=== PATIENT | male | born 1960 | race Caucasian/White ===

== ENCOUNTER 2019-03-25 18:42 | Emergency (ER) | payer SELFPAY ==
[~2019-03-25] VITALS: Ht 177.8 cm; Wt 83.9 kg
[~2019-03-25 18:42] MED LIST: ALBU90OI INH; ASPI81EC PO; ATEN25 PO; HYDACE5 PO; HYDCHL25 PO; IBUP600 PO; LORA1 PO; POTA8 PO
[2019-03-25 19:29] LABS: BASOPHILS ABSOLUTE AUTO 0.03 K/mm3 (0.00-0.23); BASOPHILS PERCENT AUTO 0 % (0-2); EOSINOPHILS ABSOLUTE AUTO 0.01 K/mm3 (0.00-0.68); EOSINOPHILS PERCENT AUTO 0 % (0-6); Hematocrit 43.2 % (37.0-53.0); Hemoglobin 15.1 g/dL (13.5-17.5); IMMATURE GRAN ABSOLUTE AUTO 0.13 K/mm3 (0.00-0.10); IMMATURE GRAN PERCENT AUTO 1 % (0-1); LYMPHOCYTES ABSOLUTE AUTO 3.17 K/mm3 (0.84-5.20); LYMPHOCYTES PERCENT AUTO 17 % (21-46); MONOCYTES ABSOLUTE AUTO 1.46 K/mm3 (0.16-1.47); MONOCYTES PERCENT AUTO 8 % (4-13); Mean Corpuscular HGB 30.9 pg (26.0-34.0); Mean Corpuscular Volume 89 fL (80-100); Mean Platelet Volume 10.3 fL (9.1-12.4); NEUTROPHILS PERCENT AUTO 75 % (41-73); Platelet Count 275 K/mm3 (150-400); RDW Standard Deviation 38.8 fL (35.1-46.3); Red Blood Cell Count 4.88 M/mm3 (4.30-5.90)
[2019-03-25 19:49] LABS: Alanine Aminotransfer (ALT/SGP 49 U/L (12-78); Albumin, Blood 4.4 g/dL (3.4-5.0); Alk Phos 95 U/L (50-136); Anion Gap 9 mmol/L (6-16); Aspartate Aminotrans (AST/SGOT 26 U/L (12-37); Bilirubin, Total 0.7 mg/dL (0.1-1.0); Blood Urea Nitrogen 30 mg/dL (8-24); CO2, Blood 25 mmol/L (21-32); Calcium, Blood 9.8 mg/dL (8.5-10.1); Chloride, Blood 97 mmol/L (98-108); Creatinine, Blood 0.81 mg/dL (0.60-1.20); Globulin, Blood 4.2 g/dL (2.2-4.0); Glomerular Filtration Rate >60 (60-); Glucose, Blood 149 mg/dL (70-99); Potassium, Blood 3.5 mmol/L (3.5-5.5); Sodium, Blood 131 mmol/L (136-145); Total Protein, Blood 8.6 g/dL (6.4-8.2)
[2019-03-25] MEDS ORDERED: AMLO10 PO (20:32)
[2019-03-25] MEDS ORDERED: Aspir 8181 MG PO (20:32)
[2019-03-25] MEDS ORDERED: ZESTORETIC 20-121 EA PO (20:32)
[2019-03-25 21:34] LABS: Source, Urine Clean Catch
[2019-03-25 21:37] LABS: Bilirubin, Urine Neg (Neg); Blood, Urine 1+ (Neg); Glucose Qualitative, Urine 1+ (Neg); Ketones, Urine 3+ (Neg); Leukocyte Esterase, Urine Neg (Neg); Nitrite, Urine Neg (Neg); Protein, Urine 1+ (Neg); Urobilinogen, Urine NORM (Normal); pH, Urine 6.5 (5.0-8.0)
[2019-03-25 21:38] LABS: Appearance, Urine Clear (Clear); Color, Urine Yellow (P-Yellow)
[2019-03-25 21:51] LABS: Bacteria Not Seen /hpf; Red Blood Cells, Urine 0-2 /hpf (0-2); Squamous Epithelial Cells Rare /hpf (Few); White Blood Cells, Urine Rare /hpf (0-5)
[2019-03-26] MEDS ORDERED: PHENERGAN25 MG PR (00:12)
[2019-03-26] MEDS ORDERED: ONDA4ODT MM (00:12)
[2019-03-26] MEDS ORDERED: METO10 PO (13:26)
[2019-03-27] MEDS ORDERED: PROM25 PO (10:09)
== END 2019-03-26 00:37 | disposition home or self-care (01) ==
LOC: ER 18:42
PROVIDERS: Physician Assistant
DX: R11.2 Nausea with vomiting, unspecified (principal); Z79.899 Other long term (current) drug therapy; Z79.82 Long term (current) use of aspirin; I10 Essential (primary) hypertension; F17.210 Nicotine dependence, cigarettes, uncomplicated
CPT/HCPCS: 36415; 71046; 74176; 80053; 81001; 82271; 83690; 85025; 86850; 86900; 86901; 93005; 93010; 96361; 96374; 96375; 96376; 99285-25; J1200; J2405; J2550; J2765; J7030

== ENCOUNTER 2019-03-26 10:30 | Emergency (ER) | payer SELFPAY ==
[~2019-03-26] VITALS: Ht 177.8 cm; Wt 83.9 kg
[~2019-03-26 10:30] MED LIST changes: +AMLO10 PO; +Aspir 8181 MG PO; +ONDA4ODT MM; +PHENERGAN25 MG PR; +ZESTORETIC 20-121 EA PO
[2019-03-26 11:10] LABS: BASOPHILS ABSOLUTE AUTO 0.04 K/mm3 (0.00-0.23); BASOPHILS PERCENT AUTO 0 % (0-2); EOSINOPHILS ABSOLUTE AUTO 0.04 K/mm3 (0.00-0.68); EOSINOPHILS PERCENT AUTO 0 % (0-6); Hematocrit 38.6 % (37.0-53.0); Hemoglobin 13.1 g/dL (13.5-17.5); IMMATURE GRAN ABSOLUTE AUTO 0.07 K/mm3 (0.00-0.10); IMMATURE GRAN PERCENT AUTO 0 % (0-1); LYMPHOCYTES ABSOLUTE AUTO 3.66 K/mm3 (0.84-5.20); LYMPHOCYTES PERCENT AUTO 22 % (21-46); MONOCYTES ABSOLUTE AUTO 1.31 K/mm3 (0.16-1.47); MONOCYTES PERCENT AUTO 8 % (4-13); Mean Corpuscular HGB Conc 33.9 g/dL (31.5-36.5); Mean Platelet Volume 10.4 fL (9.1-12.4); NEUTROPHILS ABSOLUTE AUTO 11.46 K/mm3 (1.96-9.15); NEUTROPHILS PERCENT AUTO 69 % (41-73); Platelet Count 253 K/mm3 (150-400); RDW Coefficient Variation 12.2 % (11.7-14.2); RDW Standard Deviation 40.9 fL (35.1-46.3); Red Blood Cell Count 4.22 M/mm3 (4.30-5.90); White Blood Cell Count 16.58 K/mm3 (4.00-11.30)
[2019-03-26 11:23] LABS: Mean Corpuscular Volume 92 fL (80-100)
[2019-03-26 11:35] LABS: Alanine Aminotransfer (ALT/SGP 43 U/L (12-78); Albumin, Blood 3.9 g/dL (3.4-5.0); Albumin/Globulin Ratio 1.1 (0.8-1.8); Alk Phos 77 U/L (50-136); Anion Gap 7 mmol/L (6-16); Aspartate Aminotrans (AST/SGOT 29 U/L (12-37); Bilirubin, Total 0.7 mg/dL (0.1-1.0); Blood Urea Nitrogen 28 mg/dL (8-24); Bun/Creatinine Ratio 36.1 (12.0-20.0); CO2, Blood 25 mmol/L (21-32); Calcium, Blood 8.7 mg/dL (8.5-10.1); Chloride, Blood 103 mmol/L (98-108); Creatinine, Blood 0.78 mg/dL (0.60-1.20); Globulin, Blood 3.4 g/dL (2.2-4.0); Glomerular Filtration Rate >60 (60-); Glucose, Blood 128 mg/dL (70-99); Potassium, Blood 3.5 mmol/L (3.5-5.5); Sodium, Blood 135 mmol/L (136-145); Total Protein, Blood 7.3 g/dL (6.4-8.2)
[2019-03-26 12:39] LABS: Source, Urine Clean Catch
[2019-03-26 12:48] LABS: Bilirubin, Urine Neg (Neg); Blood, Urine Neg (Neg); Glucose Qualitative, Urine Neg (Neg); Ketones, Urine Neg (Neg); Leukocyte Esterase, Urine Neg (Neg); Nitrite, Urine Neg (Neg); Protein, Urine Neg (Neg); Urobilinogen, Urine NORM (Normal)
[2019-03-26 12:55] LABS: Appearance, Urine Clear (Clear); Color, Urine Pale Yellow (P-Yellow)
[2019-03-26 13:05] LABS: U Amphetamine Screen Not Detected; U Barbituate Screen Not Detected; U Benzodiazapine Screen Not Detected; U Buprenorphine Screen Not Detected; U Cannabinoids Screen DETECTED; U Cocaine Screen Not Detected; U Methadone Screen Not Detected; U Methamphetamine Screen Not Detected; U Opiates Screen Not Detected; U Oxycodone Screen Not Detected; U Phencyclidine Screen Not Detected; U Propoxyphene Screen Not Detected
[2019-03-26] MEDS ORDERED: METO10 PO (13:26)
[2019-03-27] MEDS ORDERED: PROM25 PO (10:09)
[2019-03-29] MEDS ORDERED: COMPAZINE10 MG PO (15:48)
== END 2019-03-26 13:31 | disposition home or self-care (01) ==
LOC: ER 10:30
PROVIDERS: Emergency Medicine
DX: R11.0 Nausea (principal); I10 Essential (primary) hypertension; F17.210 Nicotine dependence, cigarettes, uncomplicated; Z79.899 Other long term (current) drug therapy
CPT/HCPCS: 36415; 76770; 80053; 81003; 83690; 84484; 85025; 96374; 96375; 99284-25; J1630; J2765; J7030

== ENCOUNTER 2019-03-27 05:22 | Emergency (ER) | payer SELFPAY ==
[~2019-03-27] VITALS: Ht 180.3 cm; Wt 83.9 kg
[~2019-03-27 05:22] MED LIST changes: +METO10 PO
[2019-03-27 06:09] LABS: BASOPHILS ABSOLUTE AUTO 0.07 K/mm3 (0.00-0.23); BASOPHILS PERCENT AUTO 0 % (0-2); EOSINOPHILS ABSOLUTE AUTO 0.04 K/mm3 (0.00-0.68); EOSINOPHILS PERCENT AUTO 0 % (0-6); Hematocrit 38.3 % (37.0-53.0); Hemoglobin 13.2 g/dL (13.5-17.5); IMMATURE GRAN ABSOLUTE AUTO 0.12 K/mm3 (0.00-0.10); IMMATURE GRAN PERCENT AUTO 1 % (0-1); LYMPHOCYTES ABSOLUTE AUTO 3.07 K/mm3 (0.84-5.20); LYMPHOCYTES PERCENT AUTO 16 % (21-46); MONOCYTES ABSOLUTE AUTO 1.16 K/mm3 (0.16-1.47); MONOCYTES PERCENT AUTO 6 % (4-13); Mean Corpuscular HGB 30.8 pg (26.0-34.0); Mean Corpuscular HGB Conc 34.5 g/dL (31.5-36.5); Mean Corpuscular Volume 90 fL (80-100); Mean Platelet Volume 10.3 fL (9.1-12.4); NEUTROPHILS ABSOLUTE AUTO 15.24 K/mm3 (1.96-9.15); NEUTROPHILS PERCENT AUTO 77 % (41-73); Platelet Count 267 K/mm3 (150-400); RDW Coefficient Variation 12.2 % (11.7-14.2); RDW Standard Deviation 39.2 fL (35.1-46.3); Red Blood Cell Count 4.28 M/mm3 (4.30-5.90)
[2019-03-27 06:31] LABS: Alanine Aminotransfer (ALT/SGP 56 U/L (12-78); Albumin, Blood 4.2 g/dL (3.4-5.0); Albumin/Globulin Ratio 1.2 (0.8-1.8); Alk Phos 85 U/L (50-136); Anion Gap 8 mmol/L (6-16); Aspartate Aminotrans (AST/SGOT 44 U/L (12-37); Bilirubin, Total 0.7 mg/dL (0.1-1.0); Blood Urea Nitrogen 23 mg/dL (8-24); Bun/Creatinine Ratio 29.4 (12.0-20.0); CO2, Blood 25 mmol/L (21-32); Chloride, Blood 102 mmol/L (98-108); Creatinine, Blood 0.78 mg/dL (0.60-1.20); Globulin, Blood 3.6 g/dL (2.2-4.0); Glomerular Filtration Rate >60 (60-); Glucose, Blood 119 mg/dL (70-99); Potassium, Blood 3.3 mmol/L (3.5-5.5); Sodium, Blood 135 mmol/L (136-145); Total Protein, Blood 7.8 g/dL (6.4-8.2)
[2019-03-27] MEDS ORDERED: PROM25 PO (10:09)
[2019-03-29] MEDS ORDERED: COMPAZINE10 MG PO (15:48)
== END 2019-03-27 10:23 | disposition home or self-care (01) ==
LOC: ER 05:22
PROVIDERS: Emergency Medicine
DX: R11.2 Nausea with vomiting, unspecified (principal); R10.9 Unspecified abdominal pain; I10 Essential (primary) hypertension; Z79.899 Other long term (current) drug therapy; Z79.82 Long term (current) use of aspirin; F17.210 Nicotine dependence, cigarettes, uncomplicated
CPT/HCPCS: 36415; 74177; 80053; 85025; 96361-59; 96374-59; 96375-59; 96376-59; 99284-25; J1630; J2060; J2550; J3010; J7030; Q9967

== ENCOUNTER 2019-04-25 09:21 | Inpatient (IN) | payer SELFPAY ==
[~2019-04-25] VITALS: Ht 180.3 cm; Wt 77.0 kg
[~2019-04-25 09:21] MED LIST changes: +COMPAZINE10 MG PO; +PROM25 PO
[2019-04-25 10:33] LABS: BASOPHILS ABSOLUTE AUTO 0.04 K/mm3 (0.00-0.23); BASOPHILS PERCENT AUTO 0 % (0-2); EOSINOPHILS ABSOLUTE AUTO 0.01 K/mm3 (0.00-0.68); EOSINOPHILS PERCENT AUTO 0 % (0-6); Hematocrit 45.1 % (37.0-53.0); Hemoglobin 15.5 g/dL (13.5-17.5); IMMATURE GRAN PERCENT AUTO 1 % (0-1); LYMPHOCYTES ABSOLUTE AUTO 2.68 K/mm3 (0.84-5.20); LYMPHOCYTES PERCENT AUTO 13 % (21-46); MONOCYTES ABSOLUTE AUTO 1.75 K/mm3 (0.16-1.47); MONOCYTES PERCENT AUTO 8 % (4-13); Mean Corpuscular HGB 30.8 pg (26.0-34.0); Mean Corpuscular HGB Conc 34.4 g/dL (31.5-36.5); Mean Corpuscular Volume 90 fL (80-100); Mean Platelet Volume 10.1 fL (9.1-12.4); NEUTROPHILS ABSOLUTE AUTO 16.28 K/mm3 (1.96-9.15); NEUTROPHILS PERCENT AUTO 78 % (41-73); Platelet Count 330 K/mm3 (150-400); RDW Coefficient Variation 12.4 % (11.7-14.2); RDW Standard Deviation 40.6 fL (35.1-46.3); Red Blood Cell Count 5.04 M/mm3 (4.30-5.90); White Blood Cell Count 20.86 K/mm3 (4.00-11.30)
[2019-04-25 10:49] LABS: Albumin, Blood 5.1 g/dL (3.4-5.0); Albumin/Globulin Ratio 1.2 (0.8-1.8); Bilirubin, Total 0.7 mg/dL (0.1-1.0); Bun/Creatinine Ratio 25.3 (12.0-20.0); Creatinine, Blood 2.96 mg/dL (0.60-1.20); Globulin, Blood 4.2 g/dL (2.2-4.0); Potassium, Blood 4.1 mmol/L (3.5-5.5); Total Protein, Blood 9.3 g/dL (6.4-8.2)
[2019-04-25 13:41] LABS: C-REACTIVE PROTEIN, EXT RANGE <0.290 mg/dL (0.000-0.300); Magnesium, Blood 2.4 mg/dL (1.6-2.4)
[2019-04-25 13:43] LABS: Thyroid Stimulating Hormone 0.299 uIU/mL (0.360-4.800)
--- NOTE | 2019-04-25 14:52 | NUR ---
ADMIT NOTE RECEIVED REPORT FROM NYA WE[facility] IN ED. PT ROOM 1345, IND IN ROOM. PT/FAMILY ORIENTED TO ROOM, FALL RISK AND CALL LIGHT SYSTEM. PT A&OX4. CALM AND COOPERATIVE WITH CARE. PT IND IN ROOM. CALL LIGHT WITHIN REACH. PT REPORTS NAUSEA UPON ADMISSION, MEDICATED PER EMAR. PT DENIES PAIN AND SOB. PT REPORTS THE N/V ORIGINALLY STARTED A MONTH AGO AND HAS INCREASINGLY WORSENING OVER THE LAST 5 DAYS. PT RECIVING IV FLUDIS NS 150ML/HR. VSS. NO OTHER ACUTE CHANGES NOTED, WILL CONTINUE TO MONITOR.
--- NOTE | 2019-04-25 17:56 | NUR ---
SHIFT SUMMARY PT A&OX4. CALM AND COOPERATIVE CARE. PT RESTING IN BED DURING SHIFT. IND IN ROOM, SBA WITH IV POLE. PT REPORTS NAS[place]A DURING SHIFT, MEDICATED PER EMAR. PT DENIES PAIN AND N/V DURING SHIFT. PT RECEIVING IV FLUIDS. VSS. NO OTHER ACUTE CHANGES NOTED DURING SHIFT. WILL CONTINUE TO MONITOR UNTIL REPORT GIVEN TO ONCOMING RN.
[2019-04-26 04:12] LABS: Source, Urine Clean Catch
[2019-04-26 04:14] LABS: Bilirubin, Urine Neg (Neg); Blood, Urine Neg (Neg); Glucose Qualitative, Urine Neg (Neg); Ketones, Urine Neg (Neg); Leukocyte Esterase, Urine Neg (Neg); Nitrite, Urine Neg (Neg); Protein, Urine Neg (Neg); Urobilinogen, Urine NORM (Normal); pH, Urine 6.5 (5.0-8.0)
[2019-04-26 04:16] LABS: Appearance, Urine Clear (Clear); Color, Urine Yellow (P-Yellow)
--- NOTE | 2019-04-26 05:00 | NUR ---
SHIFT SUMMARY PT HAS BEEN REQUIRING IV ANTI-NAUSEA MEDICATION FREQUENLTY T/O THE NIGHT. PT HAS, HOWEVER, BEEN ABLE TO DRINK AND HOLD DOWN 2 PITCHERS OF WATER DURING THE NIGHT. IS ALERT AND ORIENTED, DENIES PAIN. IVF'S INFUSING AT 150ML/HR WITHOUT DIFFICULTY. UP TO BATHROOM PER SELF IN ROOM. URINE SAMPLE OBTAINED THIS AM FOR LAB. WILL CONTINUE TO MONITOR.
[2019-04-26 05:20] LABS: BASOPHILS ABSOLUTE AUTO 0.03 K/mm3 (0.00-0.23); BASOPHILS PERCENT AUTO 0 % (0-2); EOSINOPHILS ABSOLUTE AUTO 0.02 K/mm3 (0.00-0.68); EOSINOPHILS PERCENT AUTO 0 % (0-6); Hematocrit 35.4 % (37.0-53.0); Hemoglobin 12.3 g/dL (13.5-17.5); IMMATURE GRAN ABSOLUTE AUTO 0.08 K/mm3 (0.00-0.10); IMMATURE GRAN PERCENT AUTO 1 % (0-1); LYMPHOCYTES PERCENT AUTO 23 % (21-46); MONOCYTES ABSOLUTE AUTO 1.78 K/mm3 (0.16-1.47); MONOCYTES PERCENT AUTO 11 % (4-13); Mean Corpuscular HGB 30.9 pg (26.0-34.0); Mean Corpuscular HGB Conc 34.7 g/dL (31.5-36.5); Mean Corpuscular Volume 89 fL (80-100); Mean Platelet Volume 10.4 fL (9.1-12.4); NEUTROPHILS ABSOLUTE AUTO 10.69 K/mm3 (1.96-9.15); NEUTROPHILS PERCENT AUTO 66 % (41-73); Platelet Count 257 K/mm3 (150-400); RDW Coefficient Variation 12.1 % (11.7-14.2); RDW Standard Deviation 39.2 fL (35.1-46.3); Red Blood Cell Count 3.98 M/mm3 (4.30-5.90)
[2019-04-26 05:42] LABS: Alanine Aminotransfer (ALT/SGP 28 U/L (12-78); Albumin, Blood 3.3 g/dL (3.4-5.0); Alk Phos 65 U/L (50-136); Anion Gap 7 mmol/L (6-16); Aspartate Aminotrans (AST/SGOT 24 U/L (12-37); Blood Urea Nitrogen 39 mg/dL (8-24); Bun/Creatinine Ratio 41.8 (12.0-20.0); CHOL/HDL RATIO 6.5; CO2, Blood 25 mmol/L (21-32); Calcium, Blood 8.2 mg/dL (8.5-10.1); Chloride, Blood 100 mmol/L (98-108); Cholesterol 196 mg/dL (50-200); Creatinine, Blood 0.93 mg/dL (0.60-1.20); Glomerular Filtration Rate >60 (60-); Glucose, Blood 101 mg/dL (70-99); HDL Cholesterol 30 mg/dL (>39); LDL/HDL RATIO 3.5; Low Density Lipoprotein Chol 104 mg/dL (0-110); Magnesium, Blood 2.1 mg/dL (1.6-2.4); Potassium, Blood 3.7 mmol/L (3.5-5.5); Sodium, Blood 132 mmol/L (136-145); Triglycerides 311 mg/dL (30-160); Very Low Density Lipoprot Chol 62 mg/dL (6-32)
[2019-04-26 05:49] LABS: Albumin/Globulin Ratio 1.1 (0.8-1.8)
[2019-04-26 05:51] LABS: Total Protein, Blood 6.3 g/dL (6.4-8.2)
--- NOTE | 2019-04-26 17:43 | NUR ---
SUMMARY PT IS A/O X4, PLEASANT/COOPERATIVE AFFECT. THIS AM HE STATE MILD-NO NAUSEA, TOLERATE CL DIET. STATE WOULD LIKE TO TRY REG DIET. DR OLEARY ORDER OK TO ADV DIET. PT TOLERATED REG DIET LUNCH W/O NAUSEA, EATING & DRINKING FLUIDS WELL, DR STOP IVF INFUSION. PT HAS BEEN UP AMBULATING IN VELE[place], INDEPENDANT IN ROOM. ORDER MRI R HIP R/T HX LESION @ THAT SITE. VSS.
[2019-04-27 05:27] LABS: BASOPHILS ABSOLUTE AUTO 0.05 K/mm3 (0.00-0.23); BASOPHILS PERCENT AUTO 0 % (0-2); EOSINOPHILS ABSOLUTE AUTO 0.19 K/mm3 (0.00-0.68); EOSINOPHILS PERCENT AUTO 1 % (0-6); Hematocrit 34.8 % (37.0-53.0); Hemoglobin 11.9 g/dL (13.5-17.5); IMMATURE GRAN ABSOLUTE AUTO 0.06 K/mm3 (0.00-0.10); IMMATURE GRAN PERCENT AUTO 1 % (0-1); LYMPHOCYTES PERCENT AUTO 41 % (21-46); MONOCYTES ABSOLUTE AUTO 1.51 K/mm3 (0.16-1.47); MONOCYTES PERCENT AUTO 11 % (4-13); Mean Corpuscular HGB 30.7 pg (26.0-34.0); Mean Corpuscular HGB Conc 34.2 g/dL (31.5-36.5); Mean Corpuscular Volume 90 fL (80-100); Mean Platelet Volume 10.7 fL (9.1-12.4); NEUTROPHILS ABSOLUTE AUTO 6.03 K/mm3 (1.96-9.15); NEUTROPHILS PERCENT AUTO 46 % (41-73); Platelet Count 239 K/mm3 (150-400); RDW Standard Deviation 39.1 fL (35.1-46.3); Red Blood Cell Count 3.87 M/mm3 (4.30-5.90); White Blood Cell Count 13.24 K/mm3 (4.00-11.30)
--- NOTE | 2019-04-27 05:41 | NUR ---
SHIFT SUMMARY PT AWAKE ON/OFF T/O NIGHT. AOX4. VSS. DENIES ANY PAIN, NAUSEA OR SOB. TOLERATING REGULAR DIET & FLUIDS WELL. INDEPENDENTLY AMBULATING THE HALLS W/STEADY GAIT, GONE ON MULTIPLE WALKS TO SMOKE OUTSIDE. CALL LIGHT IN REACH.
[2019-04-27 06:00] LABS: Alanine Aminotransfer (ALT/SGP 34 U/L (12-78); Albumin, Blood 3.2 g/dL (3.4-5.0); Albumin/Globulin Ratio 1.1 (0.8-1.8); Alk Phos 67 U/L (50-136); Anion Gap 5 mmol/L (6-16); Aspartate Aminotrans (AST/SGOT 18 U/L (12-37); Bilirubin, Total 0.7 mg/dL (0.1-1.0); Blood Urea Nitrogen 25 mg/dL (8-24); Bun/Creatinine Ratio 31.9 (12.0-20.0); CO2, Blood 28 mmol/L (21-32); Calcium, Blood 8.4 mg/dL (8.5-10.1); Chloride, Blood 102 mmol/L (98-108); Creatinine, Blood 0.78 mg/dL (0.60-1.20); Globulin, Blood 2.8 g/dL (2.2-4.0); Glomerular Filtration Rate >60 (60-); Glucose, Blood 88 mg/dL (70-99); Potassium, Blood 4.1 mmol/L (3.5-5.5); Sodium, Blood 135 mmol/L (136-145)
[2019-04-27] MEDS ORDERED: AMLO5 PO (12:31)
[2019-04-27] MEDS ORDERED: Prilosec Otc20 MG PO (12:32)
--- NOTE | 2019-04-27 13:37 | NUR ---
1320 PT DISCHARGED HOME VIA PERSONAL VEHICLE ACCOMPANIED BY . PT SELF AMBULATED TO FACILITY ENTRANCE PER HIS REQUEST. IV REMOVED. D/C PAPERWORK REVIEWED WITH PT AND COPY PROVIDED. NEW RX FAXED TO [facility] PER PT REQUEST. NO NEW CHANGES OR CONCERNS.
== END 2019-04-27 13:20 | disposition home or self-care (01) | DRG 683 ==
LOC: ER 09:21 → MEDS 12:41
PROVIDERS: Emergency Medicine; ADMIT Internal Medicine
DX: N17.9 Acute kidney failure, unspecified (principal); E87.1 Hypo-osmolality and hyponatremia; I10 Essential (primary) hypertension; F17.210 Nicotine dependence, cigarettes, uncomplicated; Z79.82 Long term (current) use of aspirin; M89.8X5 Other specified disorders of bone, thigh; D72.829 Elevated white blood cell count, unspecified
CPT/HCPCS: 36415; 73723; 76770; 80053; 80061; 81003; 83605; 83690; 83735; 84443; 85025; 85651; 86140; 96361; 96374; 96375; 99285-25; A9577; C9113; J0780; J1644; J2405; J2765; J7030

== ENCOUNTER 2023-09-16 08:48 | Inpatient (IN) | payer BC ==
[~2023-09-16] VITALS: Ht 175.3 cm; Wt 78.8 kg
[~2023-09-16 08:48] MED LIST changes: +AMLO5 PO; +Prilosec Otc20 MG PO
[2023-09-16 09:18] LABS: BASOPHILS ABSOLUTE AUTO 0.07 K/mm3 (0.00-0.23); BASOPHILS PERCENT AUTO 1 % (0-2); EOSINOPHILS ABSOLUTE AUTO 0.01 K/mm3 (0.00-0.68); EOSINOPHILS PERCENT AUTO 0 % (0-6); Hematocrit 47.3 % (37.0-53.0); Hemoglobin 16.3 g/dL (13.5-17.5); IMMATURE GRAN ABSOLUTE AUTO 0.07 K/mm3 (0.00-0.10); IMMATURE GRAN PERCENT AUTO 1 % (0-1); LYMPHOCYTES ABSOLUTE AUTO 2.17 K/mm3 (0.84-5.20); LYMPHOCYTES PERCENT AUTO 15 % (21-46); MONOCYTES ABSOLUTE AUTO 0.83 K/mm3 (0.16-1.47); MONOCYTES PERCENT AUTO 6 % (4-13); Mean Corpuscular HGB 30.7 pg (26.0-34.0); Mean Corpuscular HGB Conc 34.5 g/dL (31.5-36.5); Mean Corpuscular Volume 89 fL (80-100); Mean Platelet Volume 10.2 fL (9.1-12.4); NEUTROPHILS ABSOLUTE AUTO 11.86 K/mm3 (1.96-9.15); NEUTROPHILS PERCENT AUTO 79 % (41-73); Platelet Count 299 K/mm3 (150-400); RDW Standard Deviation 39.1 fL (35.1-46.3); Red Blood Cell Count 5.31 M/mm3 (4.30-5.90); White Blood Cell Count 15.01 K/mm3 (4.00-11.30)
[2023-09-16 09:42] LABS: Albumin, Blood 3.5 g/dL (3.4-5.0); Albumin/Globulin Ratio 0.8 (0.8-1.8); Bilirubin, Total 0.5 mg/dL (0.1-1.0); Bun/Creatinine Ratio 22.5 (12.0-20.0); Calcium, Blood 9.1 mg/dL (8.5-10.1); Creatinine, Blood 0.71 mg/dL (0.60-1.20); Globulin, Blood 4.6 g/dL (2.2-4.0); Potassium, Blood 4.7 mmol/L (3.5-5.5); Total Protein, Blood 8.1 g/dL (6.4-8.2)
[2023-09-16 10:47] LABS: International Normalized Ratio 1.01; Prothrombin Time Results 10.6 Sec (9.7-11.5)
[2023-09-16 14:54] LABS: CHOL/HDL RATIO 4.9; Cholesterol 214 mg/dL (50-200); HDL Cholesterol 44 mg/dL (>39); LDL/HDL RATIO 3.3; Low Density Lipoprotein Chol 143 mg/dL (0-110); Triglycerides 133 mg/dL (30-160); Very Low Density Lipoprot Chol 26 mg/dL (6-32)
[2023-09-16 15:58] VITALS: BP 191/95
[2023-09-16 16:12] LABS: U Amphetamine Screen Not Detected; U Barbituate Screen Not Detected; U Benzodiazapine Screen Not Detected; U Buprenorphine Screen Not Detected; U Cannabinoids Screen DETECTED; U Cocaine Screen Not Detected; U Methadone Screen Not Detected; U Methamphetamine Screen Not Detected; U Opiates Screen Not Detected; U Oxycodone Screen Not Detected; U Phencyclidine Screen Not Detected; U Propoxyphene Screen Not Detected
[2023-09-16] MEDS ORDERED: ASPI81CH PO (17:48)
--- NOTE | 2023-09-16 17:49 | NUR ---
SHIFT SUMMARY: PT IS A 63 YEAR OLD MALE HERE FROM THE ED FOR A CVA RESULTING IN RIGHT SIDED DEFICITS AND UNABLE TO VERBALLY COMMUNICATE. HE ALSO STRUGGLES TO COMMUNICATE WITH YES OR NO BY USING HIS THUMBS (UP OR DOWN), SHAKING HIS HEAD YES OR NO, OR EVEN USING THE PICTURE BOARD. HEALTH HISTORY OBTAINED WITH PATIENT'S EX JITENDRA. STATED THAT HE WAS INDEPENDENT PRIOR TO THIS EVENT AND WAS FINE OF LAST NIGHT AROUND 2200. HE HAS A HISTORY OF HTN, BUT DOES NOT FOLLOW UP WITH A PCP OR TAKES MEDICATIONS OTHER THAN A LOW DOSE ASPIRIN AND ISN'T SURE IF HE WAS TAKING IT DAILY. AWAITING PT/OT/AND ST EVALUATION TO PROGRESS FURTHER WITH CARE, SO AT THIS TIME REMAINS BEDREST AND NPO. SPOKE WITH DR. EASON AND ADVISED TO KEEP PATIENT NPO UNTIL EVALUATION WITH ST AND TO MAINTAIN PERMISSIVE HTN. PATIENT IN BED RESTING, CALL LIGHT WITHIN REACH, NO SIGNS OR SYMPTOMS OF DISTRESS, AND SON AT BEDSIDE. PLAN OF CARE ONGOING.
[2023-09-16 20:39] VITALS: BP 198/112
--- NOTE | 2023-09-17 04:24 | NUR ---
SHIFT SUMMARY: PT IS ADMITTED FOR STROKE WITH RIGHT SIDE WEAKNESS. IS A FULL CODE. IS ALERT BUT UNABLE TO DETERMINE TO WHAT EXTENT DUE TO NON VERBAL. ATTEMPTED TO TRY SEVERAL DIFFERENT METHODS TO FACILITATE COMMUNICATION BUT NON WERE EFFECTIVE AT THIS TIME. HE WAS ABLE TO SHOW SOME RESPONSE WITH BASIC COMMANDS. NO SIGNS THAT HE HAS DISCOMFORT. IV IN PLACE TO LEFT FOREARM WITH NS RUNNING AT 75ML/H. JORGE L REPORTED SINIS @ 83.
[2023-09-17 04:56] VITALS: BP 198/107
[2023-09-17 05:54] LABS: BASOPHILS ABSOLUTE AUTO 0.08 K/mm3 (0.00-0.23); BASOPHILS PERCENT AUTO 1 % (0-2); EOSINOPHILS ABSOLUTE AUTO 0.11 K/mm3 (0.00-0.68); EOSINOPHILS PERCENT AUTO 1 % (0-6); Hemoglobin 15.6 g/dL (13.5-17.5); IMMATURE GRAN ABSOLUTE AUTO 0.04 K/mm3 (0.00-0.10); IMMATURE GRAN PERCENT AUTO 0 % (0-1); LYMPHOCYTES ABSOLUTE AUTO 3.21 K/mm3 (0.84-5.20); LYMPHOCYTES PERCENT AUTO 27 % (21-46); MONOCYTES ABSOLUTE AUTO 1.02 K/mm3 (0.16-1.47); MONOCYTES PERCENT AUTO 9 % (4-13); Mean Corpuscular HGB 30.2 pg (26.0-34.0); Mean Corpuscular HGB Conc 34.7 g/dL (31.5-36.5); Mean Corpuscular Volume 87 fL (80-100); Mean Platelet Volume 9.9 fL (9.1-12.4); NEUTROPHILS ABSOLUTE AUTO 7.32 K/mm3 (1.96-9.15); NEUTROPHILS PERCENT AUTO 62 % (41-73); Platelet Count 303 K/mm3 (150-400); RDW Standard Deviation 38.6 fL (35.1-46.3); Red Blood Cell Count 5.16 M/mm3 (4.30-5.90); White Blood Cell Count 11.78 K/mm3 (4.00-11.30)
[2023-09-17 06:27] LABS: Bun/Creatinine Ratio 18.8 (12.0-20.0); Calcium, Blood 9.1 mg/dL (8.5-10.1); Creatinine, Blood 0.74 mg/dL (0.60-1.20); Potassium, Blood 3.8 mmol/L (3.5-5.5)
[2023-09-17 07:27] VITALS: BP 181/113
[2023-09-17 15:48] VITALS: BP 192/116
--- NOTE | 2023-09-17 17:23 | NUR ---
SHIFT SUMMARY: PT IS A 63 YEAR OLD MALE HERE 1 DAY POST CVA. HE CONTINUES TO BE NON VERBAL, COMMUNICATING WITH THUMBS UP AND DOWN WITH YES AND NO QUESTIONS. NO PHYSICAL CHANGES WITH HIS NEUROLOGICAL DEFICITS ON THE RIGHT SIDE. HE WAS ABLE TO ADVANCE TO A PUREE AND THIN LIQUID DIET AND WILL BE HAVING A SWALLOW EVALUATION TOMORROW. HE IS IN BED, CALL LIGHT WITHIN REACH, AND NO SIGNS OR SYMPTOMS OF DISTRESS. PLAN OF CARE ONGOING.
[2023-09-17 19:59] VITALS: BP 187/115
[2023-09-18 04:05] VITALS: BP 156/98
[2023-09-18 05:11] LABS: BASOPHILS ABSOLUTE AUTO 0.09 K/mm3 (0.00-0.23); BASOPHILS PERCENT AUTO 1 % (0-2); EOSINOPHILS ABSOLUTE AUTO 0.17 K/mm3 (0.00-0.68); EOSINOPHILS PERCENT AUTO 2 % (0-6); Hematocrit 44.3 % (37.0-53.0); Hemoglobin 15.2 g/dL (13.5-17.5); IMMATURE GRAN ABSOLUTE AUTO 0.03 K/mm3 (0.00-0.10); IMMATURE GRAN PERCENT AUTO 0 % (0-1); LYMPHOCYTES ABSOLUTE AUTO 3.23 K/mm3 (0.84-5.20); LYMPHOCYTES PERCENT AUTO 28 % (21-46); MONOCYTES ABSOLUTE AUTO 1.03 K/mm3 (0.16-1.47); MONOCYTES PERCENT AUTO 9 % (4-13); Mean Corpuscular HGB Conc 34.3 g/dL (31.5-36.5); Mean Corpuscular Volume 88 fL (80-100); Mean Platelet Volume 9.8 fL (9.1-12.4); NEUTROPHILS ABSOLUTE AUTO 6.82 K/mm3 (1.96-9.15); NEUTROPHILS PERCENT AUTO 60 % (41-73); Platelet Count 300 K/mm3 (150-400); RDW Standard Deviation 38.7 fL (35.1-46.3); Red Blood Cell Count 5.06 M/mm3 (4.30-5.90); White Blood Cell Count 11.37 K/mm3 (4.00-11.30)
[2023-09-18 05:37] LABS: Bun/Creatinine Ratio 18.2 (12.0-20.0); Calcium, Blood 8.7 mg/dL (8.5-10.1); Creatinine, Blood 0.82 mg/dL (0.60-1.20)
--- NOTE | 2023-09-18 06:40 | NUR ---
SHIFT SUMMARY EASILY AROUSABLE TO BOTH VERBAL AND TACTILE STIMULI. EYES OPEN SPONTANEOUSLY AND ARE EQUALLY REACTIVE TO LIGHT. CONTINUES TO BE NONVERBAL, BUT IS ABLE TO ANSWER "YES" OR "NO" QUESTIONS WITH USE OF EITHER A THUMBS UP OR THUMBS DOWN.RIGHT SIDED DEFICITS WITH FACIAL DROOP STILL NOTED. CARDIAC, REMAINS IN SR 70-80'S WITH NO CP OR PRESSURE REPORTED. SBP HAS BEEN ELEVATED RANGING 150-180'S. RESPIRATORY, MAINTAINS SPO2 >95% ON RA WITH NO SIGNS OF DYSPNEA OR RESPIRATORY DISTRESS. ., CONDOM CATH IN PLACE DUE TO INCONTINENCE. CATH PATENT AND DRAINING DORA/YELLOW COLORED URINE TO GRAVITY. NO BM THIS SHIFT. CONTINUES TO BE BEDREST DUE TO AMBULATORY DEFICITS. PT/OT ON BOARD WELL SPEECH THERAPY. ASSESSED PT FOR RISKS OF ANY IGNITION SOURCES WELL BEHAVIORS FOR INCREASED RISKS OF FIRE DANGER. PT EDUCATED ON COMMON SOURCES OF IGNITION WELL NEED TO KEEP A SAFE ENVIRONMENT. NO NEW ORDERS AT THIS TIME, WILL REPORT TO ONCOMING RN. YAHAIRA PELLETIER OF THIS NOTE
[2023-09-18 07:43] VITALS: BP 154/97
[2023-09-18 15:50] VITALS: BP 182/102
--- NOTE | 2023-09-18 17:19 | NUR ---
SHIFT SUMMARY: ANJANA IS HERE POST CVA, SHOWING NEUROLOGICAL IMPROVEMENT SINCE YESTERDAY. NOW ABLE TO MOVE TOES IN HIS RIGHT FOOT AND HAS BEEN COMMUNICATING MORE EFFECTIVELY WITH SLIGHT YES AND NO HEAD NODDING AND UTILIZING THE PICTURE BOARD. HE CONTINUES TO NOT EAT OR DRINK VERY MUCH. CONTINUE TO ENCOURAGE PATIENT TO EAT AND DRINK. HE HASN'T HAD A BOWEL MOVEMENT, BUT HAS HAD URINE OUTPUT. HE IS IN HIS BEDSIDE RECLINER, CALL LIGHT WITHIN REACH, AND NO SIGNS OR SYMPTOMS OF DISTRESS. PLAN IS TO DISCHARGE PATIENT TO A REHAB FACILITY, BUT PLAN IS STILL PENDING WITH NON DESTRUCTIVE EVALUATION MANAGER AND PATIENT/FAMILY. PLAN OF CARE ONGOING.
[2023-09-18 20:05] VITALS: BP 177/103
[2023-09-19 03:31] VITALS: BP 183/102
--- NOTE | 2023-09-19 03:51 | NUR ---
SHIFT SUMMARY PT IS HERE POST CVA, NEURO IMPROVING. RIGHT SIDED FACIAL DROOP WITH RIGHT SIDED DEFICIT. PT WAS ABLE TO SQUEEZE WITH THE RIGHT HAND WELL MOVE MOST OF THE RIGHT FOOT NOT JUST THE TOES. PT IS ABLE TO SHAKE HEAD YES OR NO TO ANSWER QUESTIONS OR GIVE THUMBS UP/DOWN. PT PO INTAKE IS VERY LITTLE. NS RUNNING AT 75. 2 PERSON ASSIST FROM CHAIR TO BED. CONDOM CATH IN PLACE WITH DRY ATTENDS. PERMISSIVE HYPERTENSION 183/102. DR AWARE. TELEMETRY: SR @ 70. PT DENIES ANY PAIN AT THIS TIME. BED KEPT IN LOWEST POSITION WITH CALL LIGHT WITHIN REACH. WILL CONTINUE TO MONITOR UNTIL END OF SHIFT.
[2023-09-19 07:12] VITALS: BP 166/100
--- NOTE | 2023-09-19 08:00 | NUR ---
pt laying on his side looks comfortable, resp even and unlabored, didn't really respond, call light in reach.
--- NOTE | 2023-09-19 09:00 | NUR ---
pt laying in bed watching tv, pt is nonverbal, shakes head yes/no, lungs are clear t/o, not really taking deep breaths, on r/a, resp even and unlabored, no cough noted, hrr, tele in place running sr in the 70's, no edema noted, piv site is clear and patent, infusing ns as ordered, has briefs in place and a condom cath, skin c/w/d, right arm is flacid, leg is weak, is eating this am, took po meds one at a time in pudding, call light in reach.
[2023-09-19 09:12] VITALS: BP 183/98
[2023-09-19 11:30] VITALS: BP 180/97
[2023-09-19 14:35] VITALS: BP 168/108
--- NOTE | 2023-09-19 18:23 | NUR ---
pt sat up in a chair for a few hrs, was a difficult two person tx to bed as he wasn't able to follow directions well, iv fluids were stopped, is feeding himself pretty well, no further changes this shift. call light in reach.
[2023-09-19 20:03] VITALS: BP 158/92
[2023-09-20 06:13] LABS: BASOPHILS ABSOLUTE AUTO 0.07 K/mm3 (0.00-0.23); BASOPHILS PERCENT AUTO 1 % (0-2); EOSINOPHILS ABSOLUTE AUTO 0.24 K/mm3 (0.00-0.68); EOSINOPHILS PERCENT AUTO 2 % (0-6); Hematocrit 46.1 % (37.0-53.0); Hemoglobin 15.9 g/dL (13.5-17.5); IMMATURE GRAN ABSOLUTE AUTO 0.03 K/mm3 (0.00-0.10); IMMATURE GRAN PERCENT AUTO 0 % (0-1); LYMPHOCYTES ABSOLUTE AUTO 3.09 K/mm3 (0.84-5.20); LYMPHOCYTES PERCENT AUTO 31 % (21-46); MONOCYTES ABSOLUTE AUTO 0.92 K/mm3 (0.16-1.47); MONOCYTES PERCENT AUTO 9 % (4-13); Mean Corpuscular HGB 29.9 pg (26.0-34.0); Mean Corpuscular HGB Conc 34.5 g/dL (31.5-36.5); Mean Corpuscular Volume 87 fL (80-100); Mean Platelet Volume 9.9 fL (9.1-12.4); NEUTROPHILS ABSOLUTE AUTO 5.74 K/mm3 (1.96-9.15); NEUTROPHILS PERCENT AUTO 57 % (41-73); Platelet Count 310 K/mm3 (150-400); RDW Coefficient Variation 11.9 % (11.7-14.2); RDW Standard Deviation 37.8 fL (35.1-46.3); Red Blood Cell Count 5.32 M/mm3 (4.30-5.90); White Blood Cell Count 10.09 K/mm3 (4.00-11.30)
[2023-09-20 06:50] LABS: Bun/Creatinine Ratio 32.5 (12.0-20.0); Calcium, Blood 9.3 mg/dL (8.5-10.1); Creatinine, Blood 0.77 mg/dL (0.60-1.20)
[2023-09-20 07:20] VITALS: BP 151/113
[2023-09-20 09:01] VITALS: BP 158/96
[2023-09-20 12:46] VITALS: BP 139/80
[2023-09-20 17:24] VITALS: BP 144/96
--- NOTE | 2023-09-20 18:48 | NUR ---
SHIFT SUMMARY PATIENT INCONTINENT, NONVERBAL AT THIS TIME. RIGHT SIDE IMPROVING. PATIENT ABLE TO OPEN AND CLOSE FINGERS/HAND AND STAND/STEP WITH RIGHT FOOT. STILL 2 PERSON MAX ASSIST WITH GAIT BELT AND WALKER. PATIENT COMMUNICATES NEEDS WITH PICTURE BOARD. CALL LIGHT IN REACH, BED IN LOW POSITION. PATIENT DOESNT CALL.
[2023-09-20 20:13] VITALS: BP 169/96
[2023-09-21 04:10] VITALS: BP 135/98
[2023-09-21 05:25] LABS: BASOPHILS PERCENT AUTO 1 % (0-2); EOSINOPHILS ABSOLUTE AUTO 0.34 K/mm3 (0.00-0.68); EOSINOPHILS PERCENT AUTO 3 % (0-6); Hematocrit 47.4 % (37.0-53.0); Hemoglobin 16.3 g/dL (13.5-17.5); IMMATURE GRAN ABSOLUTE AUTO 0.05 K/mm3 (0.00-0.10); IMMATURE GRAN PERCENT AUTO 0 % (0-1); LYMPHOCYTES ABSOLUTE AUTO 3.27 K/mm3 (0.84-5.20); LYMPHOCYTES PERCENT AUTO 28 % (21-46); MONOCYTES ABSOLUTE AUTO 1.11 K/mm3 (0.16-1.47); MONOCYTES PERCENT AUTO 10 % (4-13); Mean Corpuscular HGB 30.3 pg (26.0-34.0); Mean Corpuscular HGB Conc 34.4 g/dL (31.5-36.5); Mean Corpuscular Volume 88 fL (80-100); NEUTROPHILS ABSOLUTE AUTO 6.63 K/mm3 (1.96-9.15); NEUTROPHILS PERCENT AUTO 58 % (41-73); Platelet Count 311 K/mm3 (150-400); RDW Coefficient Variation 11.9 % (11.7-14.2); RDW Standard Deviation 38.3 fL (35.1-46.3); Red Blood Cell Count 5.38 M/mm3 (4.30-5.90)
[2023-09-21 06:19] LABS: Bun/Creatinine Ratio 33.2 (12.0-20.0); Calcium, Blood 9.3 mg/dL (8.5-10.1); Creatinine, Blood 0.87 mg/dL (0.60-1.20); Potassium, Blood 4.1 mmol/L (3.5-5.5)
[2023-09-21 07:22] VITALS: BP 153/87
--- NOTE | 2023-09-21 07:34 | NUR ---
SHIFT SUMMARY PATIENT A/O MOSTLY TO SELF, NON-VERBAL. NOTED ONGOING EXPRESSIVE APHASIA WITH RIGHT SIDED DEFICITS, RIGHT FACIAL DROOP. ABLE TO COMMUNICATE NEEDS WITH PICTURE BOARD. NO ACUTE CHANGES NOTED OVERNIGHT. BED LOCKED AND IN LOWEST POSITION, CALL LIGHT WITHIN REACH.
[2023-09-21 15:47] VITALS: BP 143/91
--- NOTE | 2023-09-21 18:18 | NUR ---
SHIFT SUMMARY NO ACUTE CHANGES THIS SHIFT. PATIENT IS ALERT AND ORIENTED WHEN USING YES/NO PICTURE BOARD. HE IS CALM AND COOPERATIVE. WORKED WELL WITH PHYSICAL THERAPY TODAY. HE CONT ON SOFT DIET, THIN LIQUIDS AND MEDS WHOLE IN APPLESAUCE. NO BM SINCE PRIOR TO ADMIT, RECEIVED NEW BOWEL MEDICATION ORDERS. PATIENT IS AWAITING INSURANCE AUTH FOR INPATIENT REHAB UNIT, ANTICIPATE EARLY TO MID NEXT WEEK FOR DISCHARGE. BED LOW AND LOCKED, CALL LIGHT WITHIN REACH. FAMILY PRESENT OFF AND ON AT BEDSIDE. [facility] PROVID[facility]PORT TO [facility]OC RN.
[2023-09-21 19:42] VITALS: BP 154/85
[2023-09-22 02:11] VITALS: BP 139/92
--- NOTE | 2023-09-22 05:09 | NUR ---
SHIFT SUMMARY PATIENT A/Ox3, PLEASANT/COOPERATIVE. CONTINUES TO BE MUTE. IS ABLE TO INDICATE BASIC NEEDS/BASIC COMMUNICATION VIA PICTURE BOARD. NOTABLY QUICKER IN RESPONSES, LESS PAUSING. DENIES PAIN NOR DISCOMFORT. NO ACUTE CHANGES NOTED OVERNIGHT. BED LOCKED AND IN LOWEST POSITION, CALL LIGHT WITHIN REACH.
[2023-09-22 07:22] VITALS: BP 127/92
[2023-09-22 17:34] VITALS: BP 135/89
--- NOTE | 2023-09-22 18:36 | NUR ---
SHIFT SUMMARY: NO NEW ACUTE CHANGES IN PATIENT CONDITION THIS SHIFT. PATIENT IS NONVERBAL. WHEN ASKED TO YES AND NO QUESTIONS PATIENT REPLIED c SMILE, NODE HEAD OR THUMBS UP. NOTED TO HAVE SLIGHT R FACIAL DROOP, SOME MOVEMENT TO R HAND AND R FOOT. PATIENT IS INCONTINENCE OF BLADDER, YOLANDA CARE, ATTENDS CHANGED AND REPOSITIONED T/O SHIFT. ORAL CARE DONE. EATING AND DRINKING WELL. VITAL SIGNS REVIEWED. PIV TO L FOREARM SALINE LOCKED. PER MAGNET[facility] HEALERLEIGHA PATIENT WAS ACCEPTED AT [facility] IN [place], AWAITING FOR INSURANCE PRE AUTH. BED ALARM ON FOR SAFETY. CALL LIGHT IN REACH.
[2023-09-22 19:50] VITALS: BP 156/92
[2023-09-23 04:40] VITALS: BP 145/89
--- NOTE | 2023-09-23 06:22 | NUR ---
PT SITTING UP IN BED AND SON/DAUGHTER IN LAW AT BEDSIDE DURING BEDSIDE REPORT- PT NONVERBAL, PT ABLE TO ANSWER YES/NO QUESTIONS WITH HEAD MOVEMENTS- PT HAS COMMUNCIATION SIGN WITH PICTURES, PT ABLE TO POINT AT NEEDS- PT TURNED T/O NIGHT- PT INCONTIENT OF URINE, PT ABLE TO ASSIST WITH TURNING IN BED AND SHIFTING SELF UP, PT ABLE TO MOVE FOOT AND SQUEEZE HAND, NO CHANGE IN NEUROS T/O NIGHT- BED LOW POSITION, CALL LIGHT WITHIN REACH, BED ALARM IN PLACE
[2023-09-23 07:17] VITALS: BP 138/87
--- NOTE | 2023-09-23 09:00 | NUR ---
pt laying in bed, wakes easily, has a rather flat affect, slow to participate, took po meds with applesauce, lungs are clear a bit dim in bases, resp even and unlabored, no cough noted at this time, on r/a, hrr, no edema noted, piv to lfa site is clear and patent, btx4, abd flat soft nontender, incont of bowl/bladder, briefs in place, skin c/w/d, right arm is flacid, very weak brass finisher, but doesn't lift arm, can move right foot, but leg is very weak, call light in reach.
[2023-09-23 15:13] VITALS: BP 115/78
[2023-09-23 19:24] VITALS: BP 129/84
[2023-09-24 04:24] VITALS: BP 136/84
--- NOTE | 2023-09-24 05:02 | NUR ---
SHIFT SUMMARY PATIENT IS ALERT AND ORIENTED X2. PATIENT HAS HAD NO ACUTE EVENTS THIS SHIFT. VITAL SIGNS REVIEWED. PATIENT IS NONVERBAL POST CVA. PATIENT SEEMS TO UNDERSTAND WORDS BEING SPOKEN BUT CANNOT COMMUNICATE NEEDS WELL. PATIENT HAS NOT COMPLAINED OF PAIN, NAUSEA, SOB OR VOMITTING THIS SHIFT. MEDS TAKEN WELL ONE AT A TIME IN APPLESAUCE. BED IN LOCKED AND LOWEST POSITION. CALL LIGHT IN PLACE.
[2023-09-24 07:41] VITALS: BP 148/85
[2023-09-24 15:51] VITALS: BP 148/90
--- NOTE | 2023-09-24 16:34 | NUR ---
SHIFT SUMMARY PT ALERT AND ORIENTED BUT NON VERBAL. NODS YES AND NO, USES THE PICTURE CARDS TO COMMUNICATE. PT HAS HAD NO COMPLAINTS THIS SHIFT. NO ACUTE EVENTS. FAMILY VISITED AND WAS AT THE BS THIS SHIFT. STILL WAITING INSURANCE AUTHORIZATION FOR A BED AT [facility]. BOWEL MEDS ADMINISTERED TO PT TODAY BUT STILL NO BM. CALL LIGHT WITHIN REACH, BED IN THE LOWEST POSITION. WILL REPORT TO ONCOMING NURSE.
[2023-09-24 19:43] VITALS: BP 132/87
[2023-09-25 02:55] VITALS: BP 118/85
--- NOTE | 2023-09-25 06:21 | NUR ---
SHIFT SUMMARY PATIENT IS ALERT AND ORIENTED, NON-VERBAL, ANSWERS YES/NO QUESTIONS WITH HEAD NOD, OR USES PICTURE COMMUNICATION BOARD. VSS, HR IN THE 70'S, AFEBRILE, ON ROOM AIR. NEURO CHECKS Q4, NO CHANGES NOTED. PT IS INCONTINENT, BRIEF IN PLACE. NO BM THIS SHIFT, BOWEL REGIMEN GIVEN. BED IN LOWEST POSITION, AND BED ALARM SET FOR PATIENT'S SAFETY. CALL LIGHT IN REACH, AND REORIENTATION ON HOW TO CALL THE NURSE GIVEN. FIRE SAFETY CHECKS COMPLETED.
[2023-09-25 06:40] VITALS: BP 137/79
[2023-09-25 16:06] VITALS: BP 124/79
--- NOTE | 2023-09-25 16:44 | NUR ---
SHIFT SUMMARY- PT IS ALERT, PLESANT AND COOPERATIVE. HE IS NONVERBAL AT THIS TIME. WORKED WITH PT, OT AND ST THIS SHIFT. HE IS EATING AND DRINKIG WELL WITH ASSISTANCE. HIS BED IS IN THE LOW POSITION AND CALL LIGHT IS WITIN REACH.
[2023-09-25 19:13] VITALS: BP 138/87
[2023-09-26 04:49] VITALS: BP 119/84
--- NOTE | 2023-09-26 06:52 | NUR ---
SHIFT SUMMARY PT HAD NO ACUTE EVENTS OVERNIGHT. VS WERE STABLE AND THE PT'S URINE PAD WAS CHANGED SEVERAL TIMES. NO COMPLAINTS OF NAUSEA OR PAIN FROM PT. PT CURRENTLY WAITING FOR TRANSFER TO AN IRU IN [place].
[2023-09-26 07:22] VITALS: BP 126/86
[2023-09-26 14:30] VITALS: BP 132/80
--- NOTE | 2023-09-26 19:09 | NUR ---
shift summary- pt alert, plesant and cooperative with care. today the patient began to speak. worked with pt and st this shift and tolorated well. his bed is in the low position and call light is witin reach. family at bedside.
[2023-09-26 20:17] VITALS: BP 132/93
[2023-09-26 21:01] VITALS: BP 132/93
[2023-09-27 04:58] VITALS: BP 134/81
--- NOTE | 2023-09-27 05:16 | NUR ---
SHIFT SUMMARY PER REPORT FROM DAY SHIFT RN, NO BM DOCUMENTED FOR SEVERAL DAYS. PT STATED HE DOESN'T KNOW WHEN HIS LAST BM WAS. PT TOOK SCHEDULED SENNA, TRIED ENCOURAGING PATIENT TO TAKE THE PRN MIRALAX. PT DID NOT WISH TO RECEIVE IT TONIGHT, BUT STATED HE WOULD BE AGREEABLE TO TAKE IT WITH HIS MORNING MEDICATIONS. NO OTHER EVENTS OVERNIGHT.
[2023-09-27 07:49] VITALS: BP 137/86
[2023-09-27] MEDS ORDERED: ATOR40TA PO (11:09)
[2023-09-27] MEDS ORDERED: Acetaminophen325 M1 PO (11:09)
[2023-09-27] MEDS ORDERED: Nicoderm Cq1 EAC1 TOP (11:10)
[2023-09-27] MEDS ORDERED: DOCUZEN 8.6-501 EACH PO (11:10)
[2023-09-27] MEDS ORDERED: LISI5 PO (11:10)
[2023-09-27] MEDS ORDERED: CARV3.125 PO (11:10)
[2023-09-27] MEDS ORDERED: MIRALAX17 GM PO (11:11)
[2023-09-27 11:37] LABS: SARS-Cov-2 (COVID-19) PCR, MMC NEGATIVE (NEGATIVE)
--- NOTE | 2023-09-27 13:32 | NUR ---
DC ORDERS RECEIVED. PT TO GO TO [facility] WITH A [employer] TIME OF 1500.
[2023-09-27 14:42] VITALS: BP 118/80
--- NOTE | 2023-09-27 15:17 | NUR ---
DC TO [facility] VIA W/C WITH ALL PERSONAL BELONGINGS VIA MED TRANSPORT. DC PKT GIVEN TO TRANSPORT PERSONNEL. AMONG BELONGINGS WAS HIS CELL PHONE & CELL PHONE [employer]. REPORT CALLED TO [facility] FAY.
== END 2023-09-27 15:10 | disposition hospice, inpatient (51) | DRG 65 ==
LOC: ER 08:48 → MEDS 14:22 → ENPENDDIS 09-27 10:45 → MEDS 09-27 15:10
PROVIDERS: Family Medicine; Student in an Organized Health Care Education/Training Program; ADMIT Internal Medicine
DX: I63.522 Cerebral infarction due to unspecified occlusion or stenosis of left anterior cerebral artery (principal); G81.91 Hemiplegia, unspecified affecting right dominant side; E78.5 Hyperlipidemia, unspecified; I10 Essential (primary) hypertension; D72.829 Elevated white blood cell count, unspecified; F17.210 Nicotine dependence, cigarettes, uncomplicated; J44.9 Chronic obstructive pulmonary disease, unspecified; N43.3 Hydrocele, unspecified; F12.90 Cannabis use, unspecified, uncomplicated; R29.717 NIHSS score 17; R05.3 Chronic cough; K59.00 Constipation, unspecified; R29.810 Facial weakness; R94.31 Abnormal electrocardiogram [ECG] [EKG]; Z11.52 Encounter for screening for COVID-19; Z86.73 Personal history of transient ischemic attack (TIA), and cerebral infarction without residual deficits; Z98.890 Other specified postprocedural states
CPT/HCPCS: 36415; 70450; 70496; 70498; 70551; 74230; 76870; 80048; 80053; 80061; 83036; 85025; 85610; 85730; 92507; 92523; 92526; 92610; 92611; 93005; 93010; 93306; 97110; 97112; 97116; 97162; 97166; 97530; 97535; 99285-25; A9270; J1650; J7030; Q9967; U0002

== ENCOUNTER → 2024-03-31 | Outpatient (CLI) | payer BC ==
[~2024-03-31] MED LIST changes: +ASPI81CH PO; +ATOR40TA PO; +Acetaminophen325 M1 PO; +CARV3.125 PO; +DOCUZEN 8.6-501 EACH PO; +LISI5 PO; +MIRALAX17 GM PO; +Nicoderm Cq1 EAC1 TOP
[2024-03-31 14:55] LABS: Alanine Aminotransfer (ALT/SGP 36 U/L (12-78); Alk Phos 101 U/L (50-136); Anion Gap 8 mmol/L (3-11); Aspartate Aminotrans (AST/SGOT 16 U/L (12-37); Bilirubin, Total 0.7 mg/dL (0.1-1.0); Blood Urea Nitrogen 16 mg/dL (8-24); Bun/Creatinine Ratio 19.1 (12.0-20.0); CHOL/HDL RATIO 5.3; CO2, Blood 29 mmol/L (21-32); Calcium, Blood 9.9 mg/dL (8.5-10.1); Chloride, Blood 103 mmol/L (98-108); Cholesterol 289 mg/dL (50-200); Creatinine, Blood 0.84 mg/dL (0.60-1.20); Globulin, Blood 4.1 g/dL (2.2-4.0); Glomerular Filtration Rate 99 (60-); Glucose, Blood 201 mg/dL (70-99); HDL Cholesterol 55 mg/dL (>39); LDL/HDL RATIO 3.1; Low Density Lipoprotein Chol 172 mg/dL (0-110); Potassium, Blood 4.2 mmol/L (3.5-5.5); Sodium, Blood 136 mmol/L (136-145); Total Protein, Blood 8.1 g/dL (6.4-8.2); Triglycerides 310 mg/dL (30-160); Very Low Density Lipoprot Chol 62 mg/dL (6-32)
== END ==
LOC: LAB 13:23 → LAB SHORT 13:23
PROVIDERS: Internal Medicine
DX: E78.2 Mixed hyperlipidemia (principal)
CPT/HCPCS: 80053; 80061